=== PATIENT | female | born 1960 | race Two or more races ===

== ENCOUNTER 2021-12-24 06:09 | Outpatient (CLI) | payer OTHER | END 2021-12-24 06:10 | disposition home or self-care (01) | LOC: LAB 06:09 | PROVIDERS: ATTEND Internal Medicine | DX: E03.9 Hypothyroidism, unspecified (principal); E11.9 Type 2 diabetes mellitus without complications ==

== ENCOUNTER 2022-04-23 07:15 | Outpatient (CLI) | payer OTHER | END 2022-04-23 07:16 | disposition home or self-care (01) | LOC: LAB 07:15 | DX: E11.39 Type 2 diabetes mellitus with other diabetic ophthalmic complication (principal); I15.8 Other secondary hypertension; D68.32 Hemorrhagic disorder due to extrinsic circulating anticoagulants; D69.9 Hemorrhagic condition, unspecified ==

== ENCOUNTER → 2022-07-08 | Outpatient (CLI) | payer OTHER | END | disposition home or self-care (01) | LOC: MAMO-SONO 07:16 | PROVIDERS: ATTEND Specialist | DX: Z12.31 Encounter for screening mammogram for malignant neoplasm of breast (principal); N64.4 Mastodynia ==

== ENCOUNTER 2022-07-09 07:27 | Outpatient (CLI) | payer OTHER | END 2022-07-09 07:28 | disposition home or self-care (01) | LOC: LAB 07:27 | DX: E11.39 Type 2 diabetes mellitus with other diabetic ophthalmic complication (principal); D68.32 Hemorrhagic disorder due to extrinsic circulating anticoagulants; D69.9 Hemorrhagic condition, unspecified ==